=== PATIENT | female | born 1975 | race Two or more races ===

== ENCOUNTER 2018-09-26 10:40 | Emergency (ER) | payer OTHER ==
[~2018-09-26] VITALS: Wt 90.0 kg
[2018-09-26 10:43] VITALS: BP 149/78; PULSE 78; RESP 18
[2018-09-26] MEDS ORDERED: SOD CHLORIDE 0.9% 1,000 ML IV STA (11:05)
[2018-09-26] MEDS ORDERED: KETOROLAC 30 MG INJ IV STA (11:05)
[2018-09-26] MEDS ORDERED: FER325 PO (17:27)
[2018-09-26] MEDS ORDERED: IBUP-1542 PO (17:27)
--- NOTE | 2018-09-26 17:31 | ERD ---
ER Documentation Chief Complaint Chief Complaint heavy menstrual period x 3 days HPI 43-year-old female presents with heavy vaginal bleeding for last 3 days. She has a history of heavy menses. She has a history of D&C. She has sensation of dizziness and fatigue. She denies any fevers, vomiting, shortness of breath or chest pain. She was told she may have fibroids in the past but is uncertain. She has had some difficulty with insurance getting [facility] evaluation. ROS All systems reviewed and are negative except as per history of present illness. Medications Home Meds Active Scripts Ferrous Sulfate* (Ferrous Sulfate*) 325 Mg Tabec, 325 MG PO BID, #60 TAB Prov:CHET RUIZ MD 09/26/18 Ibuprofen* (Motrin*) 600 Mg Tab, 600 MG PO Q6, #20 TAB Prov:CHET RUIZ MD 09/26/18 Allergies Allergies: Coded Allergies: Penicillins (Verified Allergy, Mild, 09/26/18) PMhx/Soc History of Surgery: No (D/C FOR VAG BLEED) Anesthesia Reaction: No Hx Neurological Disorder: No Hx Respiratory Disorders: No Hx Cardiac Disorders: No Hx Psychiatric Problems: No Hx Miscellaneous Medical Probl: No Hx Alcohol Use: No Hx Substance Use: No Hx Tobacco Use: No Smoking Status: Never smoker FmHx Family History: No diabetes, No coronary disease, No other Physical Exam Vitals Vital Signs Date Temp Pulse Resp B/P (MAP) Pulse Ox O2 O2 Flow FiO2 Time Delivery Rate 09/26/18 98.1 78 18 149/78 99 10:43 (101) Physical Exam Const: No acute distress. Obese. Head: Atraumatic Eyes: Normal Conjunctiva ENT: Normal External Ears, Nose and Mouth. Neck: Full range of motion. No meningismus. Resp: Clear to auscultation bilaterally Cardio: Regular rate and rhythm, no murmurs Abd: Soft, tender in the lower abdomen. No tenderness at McBurney's point no Leung sign., non distended. Normal bowel sounds Skin: No petechiae or rashes Back: No midline or flank tenderness Ext: No cyanosis, or edema Neur: Awake and alert Psych: Normal Mood and Affect Result Diagram: 09/26/18 1115 09/26/18 1115 Results 24 hrs Laboratory Tests Test 09/26/18 11:14 09/26/18 11:15 09/26/18 11:17 Urine Color YELLOW Urine Clarity SLIGHTLY CLOUDY Urine pH 5.0 Urine Specific [place] 1.018 Urine Ketones NEGATIVE mg/dL Urine Nitrite NEGATIVE mg/dL Urine Bilirubin NEGATIVE mg/dL Urine Urobilinogen NEGATIVE mg/dL Urine Leukocyte Esterase NEGATIVE Neal/ul Urine Microscopic RBC > 182 /HPF Urine Microscopic WBC 8 /HPF Urine Bacteria FEW /HPF Urine Mucus FEW /HPF Urine Hemoglobin 3+ mg/dL Urine Glucose NEGATIVE mg/dL Urine Total Protein 2+ mg/dl White Blood Count 8.8 10^3/ul Red Blood Count 4.44 10^6/ul Hemoglobin 9.8 g/dl Hematocrit 32.7 % Mean Corpuscular Volume 73.6 fl Mean Corpuscular Hemoglobin 22.1 pg Mean Corpuscular 30.0 g/dl Hemoglobin Concent Red Cell Distribution Width 17.1 % Platelet Count 411 10^3/UL Mean Platelet Volume 9.7 fl Immature Granulocytes % 0.200 % Neutrophils % 64.1 % Lymphocytes % 25.8 % Monocytes % 6.0 % Eosinophils % 3.4 % Basophils % 0.5 % Nucleated Red Blood Cells % 0.0 /100WBC Immature Granulocytes # 0.020 10^3/ul Neutrophils # 5.7 10^3/ul Lymphocytes # 2.3 10^3/ul Monocytes # 0.5 10^3/ul Eosinophils # 0.3 10^3/ul Basophils # 0.0 10^3/ul Nucleated Red Blood Cells # 0.0 10^3/ul Sodium Level 139 mmol/L Potassium Level 3.8 mmol/L Chloride Level 109 mmol/L Carbon Dioxide Level 24 mmol/L Anion Gap 6 Blood Urea Nitrogen 11 mg/dl Creatinine 0.90 mg/dl Est Glomerular Filtrat > 60 mL/min Rate mL/min Glucose Level 100 mg/dl Calcium Level 8.9 mg/dl Total Bilirubin 0.0 mg/dl Direct Bilirubin 0.00 mg/dl Indirect Bilirubin 0.0 mg/dl Aspartate Amino Transf (AST/SGOT) 20 IU/L Alanine 15 IU/L Aminotransferase (ALT/SGPT) Alkaline Phosphatase 111 IU/L Total Protein 7.8 g/dl Albumin 3.9 g/dl Globulin 3.90 g/dl Albumin/Globulin Ratio 1.00 POC Beta HCG, Qualitative NEGATIVE Current Medications Medications Dose Sig/Ede Start Time Status Last (Trade) Ordered Route PRN Stop Time Admin Dose Reason Admin Sodium 1,000 ml @ Q1H STAT 09/26/18 DC 09/26/18 Chloride 1,000 mls/hr IV 11:05 09/26/18 11:24 12:04 Ketorolac 30 mg ONCE STAT 09/26/18 DC Tromethamine IV 11:05 09/26/18 (Toradol) 11:07 Procedures/MDM HCG is negative. Hemoglobin is 9.8. CMP normal. Patient given Toradol 30 mg IV. Pelvic ultrasound shows multiple nabothian cysts and enlarged left ovary 3.7 x 3.3 with a complex mass. Neoplasm cannot be excluded. MRI recommended. MRI pelvis with contrast shows multiple fibroids some hypercellular. There is no appreciable adnexal mass. Stable throughout the ER course. Patient presents with dysfunctional uterine bleeding without significant metrorrhagia. She has a hemoglobin of 9.8. Will initiate treatment with ibuprofen and ferrous sulfate. Patient was discharged home with [facility] follow-up for further evaluation and treatment. She is otherwise return for worsening bleeding, fevers, shortness of breath, chest pain, new worsening symptoms. The patient was stable with no new complaints during the ER course. Clinically, there is no current evidence to suggest meningitis, sepsis, acute abdomen, pneumonia, stroke, acute coronary syndrome, pulmonary embolism, aortic dissection or any other emergent condition appearing to require further evaluation or hospitalization. Patient counseled regarding my diagnostic impression and care plan. Prior to discharge all questions answered. Pt agrees with treatment plan and understands strict return precautions. Pt is instructed to follow up with primary care provider within 24-48 hours. Precautionary instructions provided including instructions to return to the ER if not improving or for any worsening or changing symptoms or concerns. Departure Diagnosis: Primary Impression: Fibroids Additional Impression: Vaginal bleeding Condition: Stable Patient Instructions: Dysfunctional Uterine Bleeding, Uterine Fibroids Referrals: [facility] [address] [facility] [address] [place] [address] OFFICE FAX SLAVA VALLECILLO [address] [place] [place] [id number] [address] [facility] [address] [place], [place] [id number] [address] GONZALEZ, HESHMAT [address] [address] [facility], [address], [place] [address] CHAD HUFFMAN [address] [place] [address] [facility] [address] [place] [address] [facility] [id number] - DR MUSA, GIA [address], [place] [address] DR ALVARES, CIERRA [address] [facility]. [address], [place] [address] DR SHERMAN, [facility] [address] [place] [address] Additional Instructions: Abnormality in your ovaries seen on ultrasound is actually a fibroid seen on MRI. Recommend [facility] follow-up for further treatment. May need further treatment, hysterectomy etc. Recheck otherwise for fevers, vomiting, new or worsening symptoms. CHET RUIZ MD Sep 26, 2018 17:31
== END 2018-09-26 17:58 | disposition home or self-care (01) ==
LOC: FTE 10:40
DX: D25.9 Leiomyoma of uterus, unspecified (principal); R10.2 Pelvic and perineal pain
CPT/HCPCS: 36415; 72196; 76830; 76856; 80053; 81001; 81025; 85025; J7030; Z7502

== ENCOUNTER 2018-10-01 18:25 | Emergency (ER) | payer OTHER ==
[~2018-10-01] VITALS: Ht 157.5 cm; Wt 100.9 kg
[~2018-10-01 18:25] MED LIST: FER325 PO; IBUP-1542 PO
[2018-10-01 18:36] VITALS: Ht 157.5 cm; Wt 100.9 kg
[2018-10-01] MEDS ORDERED: ACETAMINOPHEN 325 MG TAB PO ONE (20:30)
[2018-10-01] MEDS ORDERED: CYCL10TA7 PO (22:16)
[2018-10-01] MEDS ORDERED: ACET325T33 PO (22:16)
[2018-10-01 22:28] VITALS: BP 162/80; PULSE 66; RESP 20
--- NOTE | 2018-10-02 01:41 | ERD ---
ER Documentation Chief Complaint Chief Complaint S/P [facility] FALL @1615, TODAY; BACK PAIN, HEADACHE; NO KO HPI 43-year-old female presents emerged department complaining of neck and back pain status post ground-level fall that occurred at 1615. Patient admits to having a headache rating it moderate in severity. She denies any head injury, loss of consciousness, nausea vomiting neuro deficits or vision changes. Patient has not taken medications today ROS All systems reviewed and are negative except as per history of present illness. Medications Home Meds Active Scripts Cyclobenzaprine Hcl* (Cyclobenzaprine Hcl*) 10 Mg Tablet, 10 MG PO TID, #30 TAB Prov:TREY BARRIGA PA-C 10/01/18 Acetaminophen* (Tylenol*) 325 Mg Tablet, 2 TAB PO Q6 PRN for PAIN AND OR ELEVATED TEMP, #30 TAB Prov:TREY BARRIGA PA-C 10/01/18 Ferrous Sulfate* (Ferrous Sulfate*) 325 Mg Tabec, 325 MG PO BID, #60 TAB Prov:CHET RUIZ MD 09/26/18 Ibuprofen* (Motrin*) 600 Mg Tab, 600 MG PO Q6, #20 TAB Prov:CHET RUIZ MD 09/26/18 Allergies Allergies: Coded Allergies: Penicillins (Verified Allergy, Mild, 09/26/18) PMhx/Soc History of Surgery: No (D/C FOR VAG BLEED) Anesthesia Reaction: No Hx Neurological Disorder: No Hx Respiratory Disorders: No Hx Cardiac Disorders: No Hx Psychiatric Problems: No Hx Miscellaneous Medical Probl: No Hx Alcohol Use: No Hx Substance Use: No Hx Tobacco Use: No Smoking Status: Never smoker Physical Exam Vitals Vital Signs Date Temp Pulse Resp B/P (MAP) Pulse Ox O2 O2 Flow FiO2 Time Delivery Rate 10/01/18 98.1 66 20 162/80 96 Room Air 22:28 (107) 10/01/18 98.5 94 18 182/69 99 18:36 (106) Physical Exam Const: No acute distress Head: Atraumatic Eyes: Normal Conjunctiva ENT: Normal External Ears, Nose and Mouth. Neck: Full range of motion. No meningismus. Resp: Clear to auscultation bilaterally Cardio: Regular rate and rhythm, no murmurs Abd: Soft, non tender, non distended. Normal bowel sounds Skin: No petechiae or rashes Back: Tenderness palpation over the lumbar and cervical region. Nontender and spine midline Ext: No cyanosis, or edema Neur: Awake and alert Psych: Normal Mood and Affect Results 24 hrs Laboratory Tests Test 10/01/18 21:10 POC Beta HCG, Qualitative NEGATIVE Current Medications Medications Dose Sig/Ede Start Time Status Last (Trade) Ordered Route PRN Stop Time Admin Dose Reason Admin 650 mg ONCE ONCE 10/01/18 DC 10/01/18 Acetaminophen PO 20:30 20:43 (Tylenol 10/01/18 20:31 Tab) Procedures/MDM This is a 43-year-old female who had a ground-level fall at 1615 today sustaining back and neck pain. Patient did not have any head injury or loss of consciousness. She has normal neurological exam. Acute fractures or subluxation in the spine. X-ray of the cervical and lumbar region were did not show any acute pathology. Patient is stable and well-appearing to be discharged home to follow-up with her primary care physician. Patient was given prescription for Flexeril and Tylenol Departure Diagnosis: Primary Impression: Fall Additional Impressions: Concussion Back pain Neck pain Condition: Stable Patient Instructions: After a Concussion, Back Pain (Acute Or Chronic), Fall, Mechanical, Back And Neck Pain, General Additional Instructions: FOLLOW UP WITH YOUR PRIMARY CARE PHYSICIAN TOMORROW.Return to this facility if you are not improving as expected. You have been given a medicine which may cause drowsiness.DO NOT DRIVE OR OPERATE DANGEROUS MACHINERY while taking this medicine! Take all medicines as directed. Return to this facility if you are not improving as expected. TREY BARRIGA PA-C Oct 02, 2018 01:41
== END 2018-10-01 22:29 | disposition home or self-care (01) ==
LOC: FTE 18:25
DX: S06.0X0A Concussion without loss of consciousness, initial encounter (principal); S19.9XXA Unspecified injury of neck, initial encounter; S39.92XA Unspecified injury of lower back, initial encounter; W18.39XA Other fall on same level, initial encounter; Y92.9 Unspecified place or not applicable
CPT/HCPCS: 70450; 72040; 72100; 81025; Z7502; Z7610

== ENCOUNTER 2019-01-27 13:47 | Emergency (ER) | payer OTHER ==
[~2019-01-27] VITALS: Ht 157.5 cm; Wt 109.1 kg
[~2019-01-27 13:47] MED LIST changes: +ACET325T33 PO; +CYCL10TA7 PO
[2019-01-27 13:50] VITALS: Ht 157.5 cm; Wt 109.1 kg
[2019-01-27] MEDS ORDERED: KETOROLAC 60 MG INJ IM STA (14:44)
[2019-01-27] MEDS ORDERED: DEXAMETHASONE 10 MG/ML 1 ML INJ IM ONE (15:00)
[2019-01-27] MEDS ORDERED: CYCL10TA7 PO (15:35)
[2019-01-27] MEDS ORDERED: NAPR-985 PO (15:35)
[2019-01-27 16:19] VITALS: BP 139/85; PULSE 81; RESP 18
--- NOTE | 2019-01-27 20:25 | ERD ---
ER Documentation Chief Complaint Chief Complaint back pain bend to pick cat up, previous injury HPI 43-year-old female presenting to the emergency department complaining of left- sided low back pain after a twisting motion. This occurred earlier today. She took Tylenol at home without significant relief. Her pain is constant, worse with movement, rated 7/10 in severity. She denies any fevers, chills, loss of bowel or bladder function, or other symptoms at this time. ROS All systems reviewed and are negative except as per history of present illness. Medications Home Meds Active Scripts Naproxen* (Naprosyn*) 500 Mg Tablet, 500 MG PO BID PRN for PAIN AND/OR INFLAMMATION, #30 TAB Prov:DOUGIE MOORE PA-C 01/27/19 Cyclobenzaprine Hcl* (Cyclobenzaprine Hcl*) 10 Mg Tablet, 10 MG PO TID, #15 TAB Prov:DOUGIE MOORE PA-C 01/27/19 Cyclobenzaprine Hcl* (Cyclobenzaprine Hcl*) 10 Mg Tablet, 10 MG PO TID, #30 TAB Prov:TREY BARRIGA PA-C 10/01/18 Acetaminophen* (Tylenol*) 325 Mg Tablet, 2 TAB PO Q6 PRN for PAIN AND OR ELEVATED TEMP, #30 TAB Prov:TREY BARRIGA PA-C 10/01/18 Ferrous Sulfate* (Ferrous Sulfate*) 325 Mg Tabec, 325 MG PO BID, #60 TAB Prov:CHET RUIZ MD 09/26/18 Ibuprofen* (Motrin*) 600 Mg Tab, 600 MG PO Q6, #20 TAB Prov:CHET RUIZ MD 09/26/18 Allergies Allergies: Coded Allergies: Penicillins (Verified Allergy, Mild, 09/26/18) PMhx/Soc History of Surgery: No (D/C FOR VAG BLEED) Anesthesia Reaction: No Hx Neurological Disorder: No Hx Respiratory Disorders: No Hx Cardiac Disorders: Yes (HTN) Hx Psychiatric Problems: No Hx Miscellaneous Medical Probl: Yes (hx fall last September-back pain) Hx Alcohol Use: No Hx Substance Use: No Hx Tobacco Use: No Smoking Status: Never smoker FmHx Family History: No diabetes Physical Exam Vitals Vital Signs Date Temp Pulse Resp B/P (MAP) Pulse Ox O2 O2 Flow FiO2 Time Delivery Rate 01/27/19 98.8 81 18 139/85 99 Room Air 16:19 (103) 01/27/19 99.3 85 18 145/83 98 13:50 (103) Physical Exam Const: No acute distress Head: Atraumatic Eyes: Normal Conjunctiva ENT: Normal External Ears, Nose and Mouth. Neck: Full range of motion. No meningismus. Resp: No respiratory distress. Skin: No petechiae or rashes Back: No midline or flank tenderness. Tenderness palpation of the paraspinal muscles of the lumbar spine on the left. Ext: No cyanosis, or edema Neur: Awake and alert Psych: Normal Mood and Affect Results 24 hrs Current Medications Medications Dose Sig/Ede Start Time Status Last (Trade) Ordered Route PRN Stop Time Admin Dose Reason Admin 10 mg ONCE ONCE 01/27/19 DC 01/27/19 Dexamethasone IM 15:00 15:31 (Decadron) 01/27/19 15:01 Ketorolac 60 mg ONCE STAT 01/27/19 DC 01/27/19 Tromethamine IM 14:44 15:31 (Toradol) 01/27/19 14:45 Procedures/MDM 43-year-old female presented to the emergency department complaining of left- sided low back pain. She was administered Toradol and Decadron in the department with good response. She was improved prior to discharge. Patient's musculoskeletal symptoms have stabilized while they have been evaluated in the department and are appropriate for outpatient work up. No evidence of cauda equina, cord compression, infiltrative, or infectious etiology. No evidence of life-threatening pathology at time of discharge. Pt/family in agreement with discharge plan/diagnosis. Pt/family advised to return immediately with any new or worsening symptoms. Follow-up with primary care physician within the next 1-2 days. Patient's blood pressure was elevated (>120/80) but appears stable without evidence of hypertension emergency or urgency. The patient is to follow-up and pursue outpatient monitoring and therapy with their primary care physician within 1 week and return immediately if they have any new, worsening, or concerning symptoms. Disclaimer: Inadvertent spelling and grammatical errors are likely due to EHR/dictation software use and do not reflect on the overall quality of patient care. Also, please note that the electronic time recorded on this note does not necessarily reflect the actual time of the patient encounter. Departure Diagnosis: Primary Impression: Low back pain with sciatica Condition: Fair Patient Instructions: Back Pain W/ Sciatica Referrals: [facility] YOU HAVE RECEIVED A MEDICAL SCREENING EXAM AND THE RESULTS INDICATE THAT YOU DO NOT HAVE A CONDITION THAT REQUIRES URGENT TREATMENT IN THE EMERGENCY DEPARTMENT. FURTHER EVALUATION AND TREATMENT OF YOUR CONDITION CAN WAIT UNTIL YOU ARE SEEN IN YOUR DOCTORS OFFICE WITHIN THE NEXT 1-2 DAYS. IT IS YOUR RESPONSIBILITY TO MAKE AN APPOINTMENT FOR FOLOW-UP CARE. IF YOU HAVE A PRIMARY DOCTOR --you should call your primary doctor and schedule an appointment IF YOU DO NOT HAVE A PRIMARY DOCTOR YOU CAN CALL OUR PHYSICIAN REFERRAL HOTLINE AT IF YOU CAN NOT AFFORD TO SEE A PHYSICIAN YOU CAN CHOSE FROM THE FOLLOWING [facility] [address] [facility] [address] [facility] [facility] [address] [facility] [facility] [address] [facility] [facility] [address] [facility]. [facility] [address] Additional Instructions: Call your primary care doctor TOMORROW for an appointment during the next 1-2 days.See the doctor sooner or return here if your condition worsens before your appointment time. DOUGIE MOORE PA-C January 27, 2019 20:25
== END 2019-01-27 16:21 | disposition home or self-care (01) ==
LOC: FTE 13:47
DX: M54.42 Lumbago with sciatica, left side (principal); I10 Essential (primary) hypertension
CPT/HCPCS: 96372; J1100; J1885; Z7502